=== PATIENT | male | born 1985 | race Two or more races ===

== ENCOUNTER 2016-11-27 22:59 | Emergency (ER) | payer SELFPAY ==
[~2016-11-27] VITALS: Ht 172.7 cm; Wt 61.2 kg
[~2016-11-27 22:59] MED LIST: NKM
[2016-11-27 23:00] VITALS: BP 147/94
[2016-11-27] MEDS ORDERED: LORazepam Inj 2mg/ml 1ml IM ONE (23:15)
--- NOTE | 2016-11-27 23:25 | Emergency Room Report ---
History of Present Illness General Chief Complaint: Chest Pain Source: Patient, EMS Present Illness HPI Is a 31-year-old male presents with chief complaint of palpitation, chest pain, shortness of breath. He was drinking alcohol tonight with his friends and claimed that someone must have slipped him some methamphetamine. Denies any fever or chills. Denies any nausea vomiting. When he went home he was beating fast and felt numb and dizzy. Family called 911. Patient denies suicidal thoughts or homicidal thought. Denies using methamphetamine but somehow he knew that someone slipped him methamphetamine. Allergies: Coded Allergies: No Known Allergies (Unverified , 11/27/16) Patient History Past Medical History: see triage record, old chart reviewed Past Surgical History: none Pertinent Family History: none Social History: Reports: alcohol use, drug use, smoking Immunizations: other Reviewed Nursing Documentation: PMH: Agreed, PSxH: Agreed Nursing Documentation-PM Past Medical History: No Stated History Review of Systems Eye: Denies: blurred vision, eye pain ENT: Denies: ear pain, nose congestion, throat swelling Respiratory: Denies: cough, shortness of breath Cardiovascular: Denies: chest pain, palpitations Gastrointestinal: Denies: abdominal pain, diarrhea, nausea, vomiting Musculoskeletal: Denies: back pain, joint pain Skin: Denies: rash Neurological: Reports: dizziness, paresthesia, Denies: headache, numbness Endocrine: Denies: increased thirst, increased urine Hematologic/Lymphatic: Denies: easy bruising All Other Systems: negative except mentioned in HPI Physical Exam Vital Signs Date Time Temp Pulse Resp B/P Pulse Ox O2 Delivery O2 Flow Rate FiO2 11/27/16 22:50 99.1 101 29 162/102 99 Room Air vitals with hypertension and tachypnea Sp02 EP Interpretation: reviewed, normal General Appearance: well appearing, no apparent distress, alert Head: normocephalic, atraumatic Eyes: bilateral eye EOMI, bilateral eye PERRL ENT: hearing grossly normal, normal pharynx Neck: full range of motion, supple, no meningismus Respiratory: chest non-tender, lungs clear, normal breath sounds Cardiovascular #1: regular rate, rhythm, no murmur Gastrointestinal: normal bowel sounds, non tender, no mass, no organomegaly, no bruit, non-distended Musculoskeletal: back normal, gait/station normal, normal range of motion Neurologic: alert, oriented x3 Psychiatric: anxious - And hyperventilating Skin: warm/dry Medical Decision Making Diagnostic Impression: Primary Impression: Anxiety attack Additional Impression: Drug abuse ER Course Patient with anxiety and hyperventilation. This is secondary to drug and alcohol abuse. No evidence of ACS, PE, dissection to name a few. Last Vital Signs Date Time Temp Pulse Resp B/P Pulse Ox O2 Delivery O2 Flow Rate FiO2 11/27/16 22:50 99.1 101 29 162/102 99 Room Air Status: improved Disposition: HOME, SELF-CARE Condition: Stable Additional Instructions: Abstain from drugs and alcohol. Followup with your Dr. in 2 to 3 days return if worse. DARYL ROTHMAN M.D. Nov 27, 2016 23:25
[2016-11-27 23:41] VITALS: BP 147/94
== END 2016-11-27 23:41 | disposition home or self-care (01) ==
LOC: EDBD 22:59 → EMR 23:30
DX: F41.9 Anxiety disorder, unspecified (principal); F19.10 Other psychoactive substance abuse, uncomplicated; R07.9 Chest pain, unspecified; F17.200 Nicotine dependence, unspecified, uncomplicated; I10 Essential (primary) hypertension; R00.0 Tachycardia, unspecified
CPT/HCPCS: 96372; 99283